=== PATIENT | female | born 1975 | race Two or more races ===

== ENCOUNTER 2024-11-30 18:10 | Emergency (ER) | payer OTHER ==
[~2024-11-30] VITALS: Ht 162.6 cm; Wt 87.1 kg
[2024-11-30] MEDS ORDERED: TOPROL XL25 M1 PO (18:29)
[2024-11-30] MEDS ORDERED: TAPAZOLE5 MG PO (18:29)
[2024-11-30] MEDS ORDERED: KETOROLAC TROMETHAMINE 30 MG VIAL IV ONE (18:45)
[2024-11-30] MEDS ORDERED: 0.9 % SODIUM CHLORIDE 1,000 ML IV SCH (19:00)
[2024-11-30] MEDS ORDERED: KETOROLAC TROMETHAMINE 30 MG VIAL ONE (19:03)
[2024-11-30 19:18] LABS: HEMATOCRIT 38.3 % (36.0-45.00); HEMOGLOBIN 12.6 g/dL (12.0-15.00); MEAN CELL VOLUME 86.6 fL (80.00-100.00); MEAN CORPUSCULAR HEMOGLOBIN 28.5 pg (27.00-32.0); MEAN CORPUSCULAR HGB CONC 32.9 g/dl (32.0-36.0); PLATELET COUNT 247 K/uL (150-450); RED BLOOD COUNT 4.42 M/uL (4.00-6.00); RED CELL DISTRIBUTION WIDTH 14.5 % (11.5-14.5)
[2024-11-30 19:24] LABS: PH,URINE 5.5 (5.0-8.0); URINE APPEARANCE Clear; URINE BILIRRUBIN Negative (NEGATIVE); URINE BLOOD Trace; URINE COLOR Yellow; URINE GLUCOSE Negative (NEGATIVE); URINE LEUKOCYTE Trace; URINE NITRATE Negative; URINE PROTEIN Trace (NEGATIVE)
[2024-11-30 19:27] LABS: URINE BACTERIA 624.1 uL (0.0-1933); URINE EPITHELIAL CELLS 32.2 uL (0.0-38.8); URINE RBC 17.5 uL (0.0-20.8); URINE WBC 90.9 uL (0.0-23.2)
[2024-11-30] MEDS ORDERED: CEFTRIAXONE SODIUM 2,000 MG VIAL IV ONE (19:30)
[2024-11-30 19:42] LABS: ALBUMIN 3.7 gm/dL (3.4-5.0); BILIRUBIN TOTAL 0.7 mg/dL (0.3-1.2); CALCIUM 9.5 mg/dL (8.5-10.1); CREATININE SERUM 0.62 mg/dL (0.55-1.02); GFR 102.31; POTASSIUM 4.7 mEq/L (3.5-5.1); TOTAL PROTEIN 7.7 gm/dL (6.4-8.2)
[2024-11-30 19:49] LABS: URINE CAST 0.29 uL (0.0-1.40); URINE KETONE 80 (NEGATIVE)
[2024-11-30] MEDS ORDERED: CEFTRIAXONE SODIUM 2,000 MG VIAL ONE (20:54)
[2024-11-30] MEDS ORDERED: DICLOFENAC SODI75 MG PO (21:19)
[2024-11-30] MEDS ORDERED: DUI500 PO (21:19)
== END 2024-11-30 21:58 | disposition home or self-care (01) ==
LOC: ER 18:13
PROVIDERS: General Practice
DX: R10.2 Pelvic and perineal pain (principal); E03.8 Other specified hypothyroidism; N83.291 Other ovarian cyst, right side